=== PATIENT | female | born 1975 | race African-American/Black ===

== ENCOUNTER 2022-06-18 08:30 | Emergency (ER) | payer OTHER ==
[2022-06-18 08:46] VITALS: BP 121/75; PULSE 91; RESP 18; TEMP 98.9; BMI 26.6
[2022-06-18] MEDS ORDERED: TETRACAINE 0.5% HCL 0.6ML DROPPER.BOTTLE OD ONE (09:06)
[2022-06-18] MEDS ORDERED: FLUORESCEIN NA 1 EA STRIP OD ONE (09:06)
[2022-06-18] MEDS ORDERED: TETRACAINE 0.5% OPHTH SOLN 2 ML BOTTLE ONE (09:08)
[2022-06-18] MEDS ORDERED: FLUORESCEIN NA 1 EA STRIP ONE (09:08)
[2022-06-18] MEDS ORDERED: IBUPROFEN 400 MG TABLET (FP) PO ONE ×2 (09:19→09:40)
[2022-06-18] MEDS ORDERED: ACETAMINOPHEN 500 MG TABLET (FP) PO ONE (09:19)
[2022-06-18] MEDS ORDERED: valACYclovir HCL 1000 MG TABLET PO ONE (09:21)
[2022-06-18] MEDS ORDERED: valACYclovir HCL 500 MG TABLET (FP) ONE (09:40)
[2022-06-18] MEDS ORDERED: ACETAMINOPHEN 325 MG TABLET (FP) ONE (09:41)
== END 2022-06-18 09:58 | disposition home or self-care (01) ==
LOC: JER 08:30
DX: B02.39 Other herpes zoster eye disease (principal); B02.9 Zoster without complications; R51.9 Headache, unspecified; R11.0 Nausea
CPT/HCPCS: 99283-25

== ENCOUNTER 2023-04-08 08:55 | Emergency (ER) | payer OTHER ==
[2023-04-08 09:04] VITALS: BMI 27.4
[2023-04-08] MEDS ORDERED: SODIUM CHLORIDE 500 ML IV STA (09:40)
[2023-04-08] MEDS ORDERED: MECLIZINE HCL 25 MG TABLET (FP) PO ONE (09:40)
[2023-04-08] MEDS ORDERED: MECLIZINE HCL 25 MG TABLET (FP) ONE (09:51)
[2023-04-08] MEDS ORDERED: METOCLOPRAMIDE HCL INJECTION 10 MG/2 ML VIAL IVPB ONE (10:12)
[2023-04-08] MEDS ORDERED: SODIUM CHLORIDE 0.9% 500 ML INFUS.BAG IV ONE (10:12)
[2023-04-08 10:22] LABS: HEMATOCRIT 40.2 % (32.4-45.2); HEMOGLOBIN 13.3 GM/dL (10.7-15.3); MCH 27.2 pg (25.7-33.7); MCHC 33.1 g/dl (32.0-36.0); MEAN CELL VOLUME 82.2 fl (80-96); MEAN PLT VOLUME 6.9 fl (7.5-11.1); PLATELET COUNT 324 10^3/uL (134-434); RBC 4.89 M/mm3 (3.60-5.2); RDW 13.2 % (11.6-15.6); WHITE BLOOD COUNT 3.5 K/mm3 (4.0-10.0)
[2023-04-08] MEDS ORDERED: METOCLOPRAMIDE HCL INJECTION 10 MG/2 ML VIAL ONE (10:30)
[2023-04-08 10:42] LABS: POTASSIUM 4.3 mmol/L (3.5-5.1)
[2023-04-08 10:44] LABS: ALBUMIN 3.6 g/dl (3.4-5.0); BLOOD UREA NITROGEN 10.4 mg/dL (7-18); CALCIUM 9.4 mg/dL (8.5-10.1)
[2023-04-08 10:46] LABS: MAGNESIUM 2.2 mg/dL (1.8-2.4)
[2023-04-08 10:47] LABS: CREATININE 0.8 mg/dL (0.55-1.3)
[2023-04-08 10:49] LABS: BILIRUBIN,TOTAL 0.4 mg/dL (0.2-1); PHOSPHOROUS 3.7 mg/dL (2.5-4.9); TOT PROT 7.2 g/dl (6.4-8.2)
[2023-04-08 12:25] VITALS: BP 110/65; PULSE 74; RESP 16; TEMP 97.7
== END 2023-04-08 12:25 | disposition home or self-care (01) ==
LOC: JER 08:55
PROC: 3E033GC Introduction of Other Therapeutic Substance into Peripheral Vein, Percutaneous Approach (ICD-10-PCS; principal; 2023-04-08)
PROC: 3E0337Z Introduction of Electrolytic and Water Balance Substance into Peripheral Vein, Percutaneous Approach (ICD-10-PCS; 2023-04-08)
DX: R42 Dizziness and giddiness (principal); H81.10 Benign paroxysmal vertigo, unspecified ear; Z20.822 Contact with and (suspected) exposure to COVID-19
CPT/HCPCS: 0241U-QW; 36415; 71045-TC-FY; 80053; 83735; 84100; 84484; 85027; 93005; 93010; 99285-25